=== PATIENT | female | born 1965 ===

== ENCOUNTER 2017-07-31 08:00 | Outpatient (CLI) | payer OTHER | END 2017-07-31 15:36 | disposition home or self-care (01) | LOC: LAB 08:00 → ADM 11:45 → LAB 15:36 → AMB-ENDOS 08-01 11:45 → EDSTATUS 08-01 11:45 | DX: Z12.11 Encounter for screening for malignant neoplasm of colon (principal); Z85.3 Personal history of malignant neoplasm of breast; Z01.812 Encounter for preprocedural laboratory examination ==